=== PATIENT | female | born 1995 | race Caucasian/White ===

== ENCOUNTER 2017-11-03 11:38 | Emergency (ER) | payer OTHER, BC ==
[2017-11-03 11:48] VITALS: BP 121/77
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
== END 2017-11-03 12:08 | disposition home or self-care (01) ==
LOC: CED 11:38
DX: S16.1XXA Strain of muscle, fascia and tendon at neck level, initial encounter (principal); V89.2XXA Person injured in unspecified motor-vehicle accident, traffic, initial encounter; Y92.410 Unspecified street and highway as the place of occurrence of the external cause